=== PATIENT | female | born 1935 | race Two or more races ===

== ENCOUNTER 2017-10-07 18:01 | Emergency (ER) | payer SELFPAY ==
[~2017-10-07] VITALS: Ht 157.5 cm; Wt 70.3 kg
[2017-10-07 19:15] VITALS: BP 155/82
--- NOTE | 2017-10-07 19:32 | PHYS DOC ---
Adult General Chief Complaint Chief Complaint: ANKLE PROBLEM HPI HPI Patient is a 82 year old Montenegrin-speaking patient who presents today with mild right lateral ankle pain that began yesterday after she fell yesterday. Patient states she was walking down one step when she rolled her ankle. Patient denies any loss of consciousness. Patient states the pain is worse on ambulation and weightbearing. Engineer line was used for Montenegrin. Review of Systems Review of Systems Constitutional: Denies fever or chills [] Musculoskeletal: Right ankle pain Integument: Denies rash or skin lesions [] Neurologic: Denies headache, focal weakness or sensory changes [] All other systems were reviewed and found to be within normal limits, except as documented in this note. Physical Exam Physical Exam Constitutional: Well developed, well nourished, no acute distress, non-toxic appearance. [] Skin: Warm, dry, no erythema, no rash. [] Back: No tenderness, no CVA tenderness. [] Extremities: Right ankle with mild soft tissue swelling especially on the lateral aspect. Tenderness on palpation of the right lateral ankle. Full passive range of motion to the right ankle. +2 right pedal pulse. Cap refill less than 2 seconds to the right toes. Neurologic: Alert and oriented X 3, normal motor function, normal sensory function, no focal deficits noted. [] Psychologic: Affect normal, judgement normal, mood normal. [] Current Patient Data Vital Signs Vital Signs Date Time Temp Pulse Resp B/P (MAP) Pulse Ox O2 Delivery O2 Flow Rate FiO2 10/07/17 19:15 99.0 82 16 97 Room Air 99.0 EKG EKG [] Radiology/Procedures Radiology/Procedures [] Course & Med Decision Making Course & Med Decision Making Pertinent Labs and Imaging studies reviewed. (See chart for details) Patient is in the ED right ankle pain after falling down one step yesterday. Right ankle and right foot x-rays interpreted by Dr. Terrazas were negative for any acute findings. Air cast provided in the ED by the Ed RN, neurovascular exam is intact. Patient instructed to ice and elevate the extremity and follow- up with orthopedic doctor in one week. Dragon Disclaimer Dragon Disclaimer This electronic medical record was generated, in whole or in part, using a voice recognition dictation system. Departure Departure Impression: Primary Impression: Fall down steps Additional Impression: Right ankle sprain Disposition: 01 HOME, SELF-CARE Condition: STABLE Referrals: KEVAN GAGE MD follow up in one week Patient Instructions: Ankle Sprain, Fall Prevention and Home Safety Additional Instructions: You were seen with right ankle sprain. Ice elevate the extremity. Take Tylenol [id number] as needed for pain. Wear the air cast provided as tolerated. Follow-up with the orthopedic doctor provided or your own doctor in one week if pain continues. Problem Qualifiers Primary Impression: Fall down steps Encounter type: initial encounter Qualified Codes: W10.8XXA - Fall (on) ( from) other stairs and steps, initial encounter Additional Impression: Right ankle sprain Encounter type: initial encounter Involved ligament of ankle: unspecified ligament Qualified Codes: S93.401A - Sprain of unspecified ligament of right ankle, initial encounter JOSUE SMITH APRN Oct 07, 2017 19:32
--- NOTE | 2017-10-08 08:11 | RAD ---
Right foot, 3 views, 10/07/2017: History: Fall, pain The bony structures are demineralized. No acute fracture or dislocation is identified. A tiny calcific density along the lateral margin of the anterior portion of the calcaneus is probably old. There is mild spurring at the midfoot level. There is moderate diffuse soft tissue swelling about the foot. IMPRESSION: 1. Demineralization. 2. No acute bony abnormality is detected. Right ankle, 3 views, 10/07/2017: A small, well-corticated calcific density at the tip of the lateral malleolus is probably due to old trauma. No acute fracture or dislocation is identified. There is mild degenerative change at the ankle joint. Mild soft tissue swelling is present. IMPRESSION: 1. Mild degenerative change. 2. No acute bony abnormality is detected.
== END 2017-10-07 20:19 | disposition home or self-care (01) ==
LOC: ER 18:01
DX: S93.401A Sprain of unspecified ligament of right ankle, initial encounter (principal); W10.8XXA Fall (on) (from) other stairs and steps, initial encounter; Y93.01 Activity, walking, marching and hiking; Y99.8 Other external cause status; Y92.89 Other specified places as the place of occurrence of the external cause
CPT/HCPCS: 29515; 73610; 73630; 99284-25